=== PATIENT | male | born 1955 | race African-American/Black ===

== ENCOUNTER 2019-10-15 17:20 | Emergency (ER) | payer BC ==
[~2019-10-15] VITALS: Ht 172.7 cm; Wt 87.0 kg
[2019-10-15 18:31] LABS: BASOPHILS % 0.8 % (0.0-2.0); EOSINOPHILS % 1.9 % (0.0-5.0); HEMATOCRIT. 42.5 % (42.0-52.0); HEMOGLOBIN. 14.4 g/dL (14.0-18.0); LYMPHOCYTES % 28.5 % (20.0-50.0); MEAN CORPUSCULAR HEMOGLOBIN 31.8 pg (28.0-32.0); MEAN CORPUSCULAR VOLUME 93.9 fL (80.0-94.0); MEAN PLATELET VOLUME 9.3 fl (7.4-10.4); NEUTROPHILS % 58.8 % (40.0-76.0); PLATELET 169 x1000/uL (130-400); RED BLOOD CELL COUNT 4.53 mill/uL (4.7-6.1); RED CELL DISTRIBUTION WIDTH 13.4 % (11.6-14.6)
[2019-10-15 18:38] LABS: CHLORIDE 102 mEq/L (98-107)
[2019-10-15 22:04] VITALS: BP 162/97
== END 2019-10-15 22:37 | disposition home or self-care (01) ==
LOC: ER 17:20
DX: R20.0 Anesthesia of skin (principal); G47.30 Sleep apnea, unspecified; Z98.890 Other specified postprocedural states
CPT/HCPCS: 36415; 71045; 83880; 84484; 93005; 99284